=== PATIENT | female | born 1990 | race Caucasian/White ===

== ENCOUNTER 2016-10-14 20:28 | Emergency (ER) | payer OTHER ==
--- NOTE | ~2016-10-14 | CT4 ---
[facility] A Service of [facility] RADIOLOGY TEXT RESULTS PATIENT: NAJMA FINNEY LOCATION: SED : [birth year] UNIT #: [id number] AGE: [address]: MO MILAN SEX: F ORDER DR: [id number] [place] [id number] E MR#: [id number] Acc #: [id number] NAME: NAJMA FINNEY : 1990 SEX: F STUDY DATE/TIME: 10/14/2016 21:43 UNIT: SED ROOM: STUDY DESCRIPTION: CT Abd and Pelv Wo Cont Attending Physician: Mo Milan Ordering Physician: Physician Non-Staff Primary Care Physician: [facility] MEDICAL IMAGING REPORT This report is preliminary unless electronic signature is present. EXAM CT abdomen and pelvis without contrast INDICATION Nausea, vomiting and diarrhea for the past [address] of the abdomen and pelvis. This CT exam was performed with one or more of the following radiation dose reduction techniques: automatic exposure control, adjustment of mA and/or kV according to patient size, and iterative reconstruction. COMPARISON 05/17/2016 FINDINGS ABDOMEN WITHOUT CONTRAST: Included lung bases are clear. Liver measures 18.0 cm. Diffuse hepatic steatosis. Left kidney unremarkable. There is no right kidney. Adrenal glands, pancreas, gallbladder have an unremarkable unenhanced appearance. Bowel loops are nondilated. Appendix is normal. PELVIS WITHOUT CONTRAST: No pelvic mass or fluid. No aggressive appearing bone lesion. IMPRESSION 1. No acute findings. 2. Hepatic steatosis. 3. Either congenital absence or surgical absence of the right kidney. Left kidney unremarkable. [facility] A Service of [facility] RADIOLOGY TEXT RESULTS PATIENT: NAJMA FINNEY LOCATION: SED : [birth year] UNIT #: [id number] AGE: [address]: MO MILAN SEX: F ORDER DR: Dictated by... Kam Norman M.D. THIS IS AN ELECTRONICALLY VERIFIED REPORT Kam Norman M.D. at 10/15/2016 9:54 PM [place] TD: 10/15/2016 08:08 JOB #: [id number] MEDICAL IMAGING REPORT Page 1 of 1
[~2016-10-14 20:28] MED LIST: BACTRIM DS TABL1 TA1 PO; BUSPAR30 MG PO; EFFEXOR-XR150 MG PO; INDERAL20 MG; KLONOPIN0.5 M3; LITHIUM CARBON300 M1; LITHIUM CARBON300 M1 PO; LOESTRIN1 TA1 PO; LORTAB 5/500 TA1 TA1 PO; MINIPRESS; MINIPRESS PO; NEURONTIN800 MG; PAXIL30 MG PO; PAXIL40 MG PO; PHENERGAN PO; PHENERGAN25 MG PO; PROMETHAZINE D118 ML PO; PROMETHAZINE W118 M1 PO; PROPRANOLOL HCL10 MG PO; SEROQUEL XR200 MG PO; TEGRETOL XR PO; THORAZINE100 MG DOB; VICODIN 5/1 TAB 5/50 PO; VISTARIL50 MG PO; WELLBUTRIN XL150 M2; ZITHROMAX PO; ZOFRAN ODT4 MG PO; ZOLOFT PO
[2016-10-14] MEDS ORDERED: NO MEDICATIONS (20:37)
[2016-10-14 21:00] LABS: URINE SOURCE CLEAN CATCH
[2016-10-14 21:03] LABS: URINE APPEARANCE HAZY; URINE BLOOD 2+ (NEG); URINE COLOR YELLOW; URINE GLUCOSE NEG (NORM); URINE KETONE TRACE (NEG); URINE LEUKOCYTE ESTERASE NEG (NEG); URINE NITRATE NEG (NEG); URINE PH 5.5 (5-8); URINE PROTEIN TRACE (NEG); URINE SPECIFIC GRAVITY 1.025 (1.003-1.035)
[2016-10-14 21:05] LABS: BASOPHIL# 0.1 X10e3 (0-0.3); EOSINOPHIL# 0.1 X10e3 (0-0.7); EOSINOPHIL% 0.6 % (0.0-7.0); HEMATOCRIT 46.2 % (35.0-45.0); HEMOGLOBIN 15.3 gm/dL (12.0-16.0); LYMPHOCYTE% 25.5 % (17.0-45.0); MEAN CELL VOLUME 96.5 FL (83-96); MEAN CORPUSCULAR HEMOGLOBIN 31.9 PG (28-34); MEAN CORPUSCULAR HGB CONC 33.1 g/dL (30-36); MEAN PLATELET VOLUME 8.7 FL (6.5-11.5); MONOCYTE# 0.8 X10e3 (0-1.0); MONOCYTE% 6.6 % (3.0-12.0); NEUTROPHIL# 7.8 X10e3 (1.5-7.1); NEUTROPHIL% 66.3 % (40-75); PLATELET COUNT 393 X10e3 (140-420); RED BLOOD COUNT 4.79 X10e (3.90-5.30); RED CELL DISTRIBUTION WIDTH 14.3 % (11.0-15.5); WHITE BLOOD COUNT 11.8 X10e3 (4.0-10.5)
[2016-10-14 21:10] LABS: MICRO INDICATED? YES; URINE BILIRUBIN NEG (NEG)
[2016-10-14 21:10] LABS: DIFF IND NO
[2016-10-14 21:11] LABS: CULTURE INDICATED? NO; URINE BACTERIA NEG (NEG); URINE MUCUS PRESENT; URINE SQUAMOUS EPITHELIAL CELL OCCAS /[HPF]; URINE WBC 0-2 /[HPF] (0-5)
[2016-10-14 21:19] LABS: ALBUMIN SERUM 5.1 g/dL (3.5-5.0); BILIRUBIN, DIRECT 0.1 mg/dL (0.0-0.2); BILIRUBIN,INDIRECT 0.5 mg/dL (0.0-0.9); BILIRUBIN,TOTAL 0.6 mg/dL (0.2-2.0); CALCIUM SERUM 9.8 mg/dL (8.4-10.2); CREATININE SERUM 0.8 mg/dL (0.6-1.4); GLOM FILT RATE Estimated 100.4 mL/min (>60); POTASSIUM 3.7 mmol/L (3.5-5.1); PROTEIN TOTAL SERUM 8.3 g/dL (6.0-8.3)
== END 2016-10-14 23:05 | disposition home or self-care (01) ==
LOC: SED 20:28
PROVIDERS: Physician Assistant
DX: R10.9 Unspecified abdominal pain (principal); R11.2 Nausea with vomiting, unspecified; K21.9 Gastro-esophageal reflux disease without esophagitis; F31.9 Bipolar disorder, unspecified; F17.210 Nicotine dependence, cigarettes, uncomplicated
CPT/HCPCS: 36415; 74176; 80048; 80076; 81003; 83690; 84703; 85025; 96360; 96372; 99284; J2405; J2550

== ENCOUNTER 2016-12-17 07:02 | Inpatient (IN) | payer OTHER ==
[~2016-12-17] VITALS: Ht 157.5 cm; Wt 63.0 kg
--- NOTE | ~2016-12-17 | PN ---
Unit #: [id number] #: [id number] Patient: NAJMA TONEY [id number] [facility] [address] [place] [address] [id number] MR#: [id number] NAME: NAJMA TONEY ROOM: P256 Age: 26 Sex: F Admission Date: 12/18/2016 : 1990 Attending Physician: William Flannery M.D. Admitting Physician: William Flannery M.D. Primary Care Physician: [facility] TATO PROGRESS NOTES DATE December 22, 2016 DISCUSSION Ms. Toney is a 26-year-old white female, who was seen today and chart was reviewed and the case was discussed with the staff. The patient has been doing fairly well with no agitation or irritability, and has been rather calm as compared to yesterday and has been taking the medications and tolerating them fairly well with no reported side effects. MENTAL STATUS EXAMINATION Young white female, who was casually dressed with fair personal hygiene and appears to be in no acute distress or discomfort. She was awake and alert on interaction with intact orientation. Her mood was anxious and depressed with a congruent affect. The patient denies any suicidal or homicidal ideations. Her insight and judgment remain slightly impaired. TREATMENT PLAN 1. We will continue her on her current medications and treatment protocol, and will monitor her response to the medications, and make further adjustments as needed. 2. We will continue to followup. Dictated by... Sam Ellis/peyton TD: 12/24/2016 04:56 JOB #: [id number] Unit #: [id number] #: [id number] Patient: NAJMA TONEY PROGRESS NOTES Page 1 of 1 X William Flannery MD X PROGRESS NOTE
--- NOTE | ~2016-12-17 | PN ---
Unit #: [id number] #: [id number] Patient: NAJMA TONEY [id number] [facility] [address] [place] [address] [id number] MR#: [id number] NAME: NAJMA TONEY ROOM: P256 Age: 26 Sex: F Admission Date: 12/18/2016 : 1990 Attending Physician: William Flannery M.D. Admitting Physician: William Flannery M.D. Primary Care Physician: [facility] TATO PROGRESS NOTES DATE 12/21/2016 DISCUSSION Ms. Toney is a 26-year-old white female who was seen today and chart was reviewed and case was discussed with the staff. She has been anxious, withdrawn and rather seclusive to herself and has been showing some increasing agitation, aggression and has been yelling, screaming, cursing and causing a lot of disturbance on the unit refusing to take responsibility for her mood, her actions and her behavior. MENTAL STATUS EXAMINATION Young white female who was casually dressed with fair personal hygiene, appears to be in no acute distress or discomfort. She was awake and alert with intact orientation. Her mood was anxious with congruent affect. She denies any suicidal or homicidal ideations. Her insight and judgement remains slightly impaired. TREATMENT PLAN 1. We will continue her on her current medications and treatment protocol. We will monitor her response to the medication. We will make further adjustments as needed. 2. We will continue to follow up. Dictated by... Sam Ellis/angélica TD: 12/23/2016 03:51 JOB #: [id number] Unit #: [id number] #: [id number] Patient: NAJMA TONEY PROGRESS NOTES Page 1 of 1 X iWlliam Flannery MD PROGRESS NOTE
--- NOTE | ~2016-12-17 | PA ---
Unit #: [id number] #: [id number] Patient: NAJMA FINNEY [id number] [facility] [address] [place] [address] [id number] MR#: [id number] NAME: NAJMA FINNEY ROOM: P265 Age: 26 Sex: F Admission Date: 12/18/2016 : 1990 Date of Assessment: 12/19/2016 Attending Physician: William Flannery M.D. Admitting Physician: William Flannery M.D. Primary Care Physician: [facility] PSYCHIATRIC ASSESSMENT DATE OF SERVICE 12/19/2016. IDENTIFYING DATA Ms. Finney is a 26-year-old single white female, who is a resident of [place], [place] and was self referred to the hospital on a voluntary basis and was referred to us from the intensive outpatient treatment program. CHIEF COMPLAINT "I just feel hopeless." HISTORY OF PRESENT ILLNESS Ms. Finney is a 26-year-old white female with history of mood disorder, who reports that she just came from her therapist office and they referred her to come here, "I do not know, I just feel hopeless and went to counseling today thinking I would have a little hopes to get to tomorrow and get to outpatient and I have been to outpatient and inpatient and it never helps well, I do not know what is different from last one, I feel like I was going to kill myself, I mean, overdose, hanging, shooting myself, getting hit by a train, car wreck. I have been suicidal since I was child and I have been able to manage up until the last 10 years and I do not like communicating because you get dehumanized and treated like an animal and the therapist who referred here, states that the patient has been working with them for many years and this is where she has been seen and she has been re-concerned and therapist was concerned about the patient's safety and the patient reports that she overdosed on Klonopin at [facility] on Friday and reports the patient called and found out admission was busy and left and has been noncompliant with medications. She has been feeling hopeless and has not been eating and staying in her room and has stopped watching TV. The therapist believes this is the closest that the patient has been suicide and she was seemed to be significant threat to herself and as such, recommendation for inpatient level of care for safety and stabilization was made and she was stepped up to the inpatient unit. SUBSTANCE ABUSE HISTORY The patient reports extensive history of substance abuse and dependence including alcohol, cannabis, cocaine, opioids, amphetamines, and benzodiazepines, and reports that more recently, she has been using marijuana on daily basis, but has not used any drugs in the last few months to years. Unit #: [id number] #: [id number] Patient: NAJMA FINNEY PAST PSYCHIATRIC HISTORY The patient has a history of multiple inpatient psychiatric hospitalizations at [facility] and currently has been seeing Dr. Plaza for medication management on an outpatient basis and review of the medical records indicate that she has been diagnosed and treated for bipolar disorder and is on Depakote and Klonopin. PAST MEDICAL HISTORY No acute or chronic medical illnesses. PERSONAL AND SOCIAL HISTORY A 26-year-old white female, who reports that she is single, unemployed, and lives at home with her mother and has fairly decent social support system. MENTAL STATUS EXAMINATION Young white female, who was casually dressed with fair personal hygiene, appears to be in no acute distress or discomfort. She was awake and alert on interaction with intact orientation to time, place, and person. Her mood was anxious and depressed with a congruent affect. Her speech was slow and restricted in content. She reports having suicidal ideations, but denies any homicidal ideations, and also denies any auditory or visual hallucinations. Her insight and judgment remain significantly impaired. DIAGNOSTIC IMPRESSION Psychiatric: Bipolar disorder, most recent episode depressed, recurrent, moderate, without psychotic features. Medical: None. Stressors: Moderate psychosocial stressors. TREATMENT PLAN 1. The patient has presented with history of mood disorder and has been decompensating and will need inpatient hospitalization for safety and stabilization. We will start her back on her home medications. We will adjust the medications and monitor response. 2. Supportive therapy was provided to the patient. 3. Safe, structured, and nourishing environment will be provided. ESTIMATED LENGTH OF STAY 5 to 7 days. ABILITY TO HELP SELF Limited. WILLINGNESS TO HELP SELF The patient appears to be willing to help self. STRENGTHS 1. Communicative. 2. Cooperative. PROBLEMS 1. Chronic dysphoric symptoms. 2. Poor social support system. DISCHARGE CRITERIA This will be contingent upon the patient's ability to show resolution of her depression and anxiety and her ability to stay safe to herself, Unit #: [id number] #: [id number] Patient: NAJMA FINNEY particularly after discharge from the hospital. Dictated by... Sam Ellis/sandra TD: 12/19/2016 07:27 JOB #: [id number] PSYCHIATRIC ASSESSMENT Page 1 of 1 X William Flannery MD X PSYCHIATRIC ASSESSMENT
--- NOTE | ~2016-12-17 | A ---
[facility] Nutrition Therapy DATE: 12/20/16 Patient: NAJMA SHARMIN Physician: VIKTOR Address: [address] [place] [address] Room/Bed: [address], Zip: [place] [address] Admit Date: 12/18/16 Date of : [birth year] Height: 5 2 Weight: [id number] NUTRITIONAL ASSESSMENT: REASON: DIFFICULTIES CHEWING/SWALLOWING PATIENT ADMITTED FOR DEPRESSION, SI, AND SELF-HARM PMH: GERD, CONGENITAL SINGLE KIDNEY Anthropometrics: HT: 62", WT: 139#, BMI: 25.4 Labs: 12/19/16- ALL NUTRITIONAL LABS WNL Meds: ABILIFY, AMOXICILLIN, KLONOPIN Assessment: PATIENT IS A 26 Y/O FEMALE AMDITTED FOR DEPRESSION, SI, AND SELF-HARM. PATIENT IS CURRENTLY UNEMPLOYED, ON DISABILITY, LIVES WITH HER MOTHER, SMOKES 2 PPD, HAS DAILY MARIJUANA USE, AND HAS A HX OF ETOH, COCAINE, OPIATES, METH, AND XANAX ABUSE. IT IS NOTED THAT PATIENT HAS A HX OF MULTIPLE INPATIENT PSYCH HOSPITALIZATIONS AND SHE HAS BEEN NON-COMPLIANT WITH FILOMENA MEDICATIONS PRIOR TO ADMIT. PER NEEDS ASSESSMENT PATIENT STATED A POOR APPETITE WITH A 21# WEIGHT LOSS X 1 MONTH. WEIGHT HX PER MEDITECH SHOWS A 9# WEIGHT GAIN OVER THE LAST 3 MONTHS. NURSING REPORTS GOOD PO INTAKES. PATIENT HAS SCRATCHES ON BOTH ARMS D/T SELF-HARM WITH NO FURTHER SKIN BREAKDOWN OR GI ISSUES NOTED ATT. NURSING REPORTS PATIENT HAS BEEN IRRITABLE, ANGRY, AND THREATENING SINCE ADMIT, AND THAT PATIENT HAS TOOTH AND MOUTH PAIN. PATIENT IS ON A REGULAR DIET AND CURRENTLY RECEIVES FINGER FOODS A BEHAVIOR PRECAUTION. THERE ARE NO C/O CHEWING OR SWALLOWING DIFFICULTIES NOTED ATT. Dx: NO NUTRITION DX Intervention: REGULAR DIET, FINGER FOODS NEEDED, MEDS PER MD, PSYCH Monitoring, Evaluation and Goals: 1. ADEQUATE PO INTAKES >50% OF MEALS 2. PREVENT, CORRECT MICRO/MACRO NUTRIENT DEFICIENCIES MONITOR: WEIGHTS, LABS, PO/FLUID INTAKES Recommendations: 1. CONTINUE REGULAR DIET TOLERTED AND SEND FINGER FOODS NEEDED. 2. ENCOURAGE ADEQUATE PO AND FLUID ITNAKES 3. IF PATIENT HAS C/O CHEWING OR SWALLOWING DIFFICULTIES PLEASE CONSULT PETROGRAPHER FOR FURTHER EVALUATION [facility] Nutrition Therapy DATE: 12/20/16 Patient: NAJMA FINNEY Physician: VIKTOR Address: [address] [place] [address] Room/Bed: [address], Zip: [place] [address] Admit Date: 12/18/16 Date of : [birth year] Height: 5 2 Weight: [phone] TO F/U PER PROTOCOL AND PRN R/T PATIENT NOT AT NUTRITIONAL RISK Respectfully, LUCAS SANTIAGO, RD, LD [facility] Nutrition[facility] cc: client file
--- NOTE | ~2016-12-17 | DS ---
Unit #: [id number] #: [id number] Patient: NAJMA FINNEY [id number] [facility] [address] [place] [address] [id number] MR#: [id number] NAME: NAJMA FINNEY ROOM: [facility] Age: 26 Sex: F Admission Date: 12/18/2016 : 1990 Discharge Date: 12/23/2016 Attending Physician: William Flannery M.D. Primary Care Physician: [facility] DISCHARGE SUMMARY REASON FOR ADMISSION Suicidal ideation. DIAGNOSTIC STUDIES LABORATORY RESULTS: Unremarkable except urine drug screen positive for benzodiazepine and marijuana. HOSPITAL COURSE The patient was admitted to the inpatient unit on 12/18/2016 and discharged on 12/23/2016. The patient was treated on the inpatient unit with group therapy, medication management, psychotherapy, and structured milieu. The patient was responsive to treatment. Subsequently, the patient was discharged with a plan to follow up in outpatient program. DISCHARGE MEDICATION Abilify 10 mg b.i.d. for mood stabilization. DISCHARGE DIAGNOSES Psychiatric: Bipolar mood disorder, recurrent, severe, depressed, F31.9; cannabis abuse, moderate, F12.20; and sedative hypnotic use disorder, severe, F13.20. Secondary diagnosis: Deferred. Medical diagnosis: None. Stressors: Psychosocial stressors. DISCHARGE INSTRUCTIONS The patient to follow up in outpatient clinic as per social sciences department chair. CONDITION ON DISCHARGE The patient was pleasant and cooperative. Denied any psychotic symptoms or any suicidal ideation. PROGNOSIS Guarded. DIET AND ACTIVITY As tolerated. Dictated by... Unit #: [id number] #: [id number] Patient: NAJMA FINNEY Sam Galvan/sandra TD: 12/25/2016 15:53 JOB #: [id number] DISCHARGE SUMMARY Page 1 of 1 X Mario George MD X DISCHARGE SUMMARY
--- NOTE | ~2016-12-17 | HP ---
Unit #: [id number] #: [id number] Patient: NAJMA FINNEY [id number] [facility] [address] [place] [address] [id number] I MR#: [id number] NAME: NAJMA FINNEY ROOM: P265 Age: 26 Sex: F Admission Date: 12/18/2016 : 1990 Attending Physician: William Flannery M.D. Admitting Physician: William Flannery M.D. Primary Care Physician: [facility] HISTORY AND PHYSICAL HISTORY OF PRESENT ILLNESS Najma is a 26-year-old admitted to [address] [place] [address] with depression and self-harming behavior. She has had other admissions to this facility for the same. PAST MEDICAL HISTORY 1. History of self-harming. She has new areas along both of her arms. 2. Congenital single kidney. 3. GERD. 4. Obesity. PAST SURGICAL HISTORY Pelvic surgery as a child. ALLERGIES No known drug allergies. SOCIAL HISTORY Smokes 1 pack per day. Denies alcohol. Admits to using marijuana and has a history of illicit substance abuse. FAMILY HISTORY Medically noncontributory. REVIEW OF SYSTEMS CONSTITUTIONAL: No fever or chills. HEENT: Denies any sore throat, ear pain or runny nose. CARDIOVASCULAR: Denies chest pain, irregular heart rhythm or palpitations. CHEST: Denies shortness of breath or cough. No hemoptysis. GASTROINTESTINAL: Denies nausea, vomiting, diarrhea or chronic constipation. ENDOCRINE: Denies history of increased thirst or urination. No recent significant weight loss or gain. GENITOURINARY: Denies dysuria, frequency, or hematuria. SKIN: Denies any rashes. HEMATOLOGIC: Denies history of increased bleeding or bruising. MUSCULOSKELETAL: Denies any hot, swollen joints. No generalized muscle pain. NEUROLOGIC: Denies problems with vision or speech. No frequent, severe headaches. No numbness, tingling or weakness in any extremities. Denies loss of bladder or bowel control. CURRENT MEDICATIONS Unit #: [id number] #: [id number] Patient: NAJMA FINNEY 1. Abilify 5 mg q.h.s. 2. Triple antibiotic ointment topically t.i.d. 3. Minipress 2 mg b.i.d. 4. Amoxicillin 500 mg q.i.d. 5. Milk of Magnesia p.r.n. 6. Maalox p.r.n. 7. Tylenol p.r.n. 8. Lamictal 25 mg b.i.d. 9. Depakote 500 mg b.i.d. 10. Klonopin 1 mg t.i.d. 11. Nicotine patch 21 mg daily PHYSICAL EXAMINATION GENERAL: Alert, obese, in no apparent distress. VITAL SIGNS: Blood pressure 100/70, heart rate 80, respirations 16, temperature 98.6. WEIGHT: 139. HEIGHT: 5 feet 2 inches. SKIN: Warm and dry without rash. She has multiple long scratched areas on bilateral arms. There is no increased redness, swelling, heat or pus noted. HEENT: Normocephalic. TMs not viewed. Oral and nasal passages clear. Conjunctivae clear. PERRLA. EOMs intact. NECK: Supple without lymphadenopathy or thyromegaly. HEART: Regular rate and rhythm without murmur. LUNGS: Clear. ABDOMEN: Soft, nontender. : Not done. EXTREMITIES: No evidence of cyanosis, clubbing or edema. Moves all without focal deficit. NEUROLOGICAL: Grossly within normal limits. Cranial Nerves: II: Visual dodd are intact. III, IV AND : Extraocular movements are intact. Pupils are equal, round and reactive to light. V: Facial sensation is grossly normal. VII: Facial movements and expression are normal. VIII: Auditory acuity grossly intact. IX, X: Uvula is midline. Phonation is normal. XI: Patient shrugs shoulders and turns head normally. XII: Tongue protrudes in the midline. Sensory and Motor Function: Sensory and motor sensation is grossly normal. Motor: moves all extremities well. Coordination: Gait is normal. Deep Tendon Reflexes: Intact. IMPRESSION Psychiatric admission. RECOMMENDATIONS PSYCHIATRIC: Per psychiatrist. MEDICAL: See no contraindication to participate in facility's activities. MEDICAL PROGNOSIS Good. MEDICAL CONDITION Stable. Dictated by... Unit #: [id number] #: [id number] Patient: NAJMA FINNEYnifer Jose Raul RubyAEma-Rand. for Sam Sanchez/james TD: 12/19/2016 18:02 JOB #: [id number] HISTORY AND PHYSICAL Page 1 of 1 X Kate Mckinley HISTORY AND PHYSICAL
--- NOTE | ~2016-12-17 | PN ---
Unit #: [id number] #: [id number] Patient: NAJMA TONEY [id number] [facility] [address] [place] [address] [id number] MR#: [id number] NAME: NAJMA TONEY ROOM: [facility] Age: 26 Sex: F Admission Date: 12/18/2016 : 1990 Attending Physician: William Flannery M.D. Admitting Physician: William Flannery M.D. Primary Care Physician: [facility] TATO PROGRESS NOTES DATE OF SERVICE 12/20/2016 DISCUSSION Mr. Toney is a 26-year-old white female who was seen today. Chart was reviewed and case was discussed with the staff. She has been agitated, irritable, angry, and had a rough day yesterday with episodes of verbal and physical outbursts and aggression and self-harming behavior, and threatening staff and other peers, needing p.r.n. medications, and continues to show very negative attitude and behavior. As such we will adjust her medications and monitor response. Dictated by... Sam Ellis/lyle TD: 12/20/2016 10:42 JOB #: [id number] TATO PROGRESS NOTES Page 1 of 1 X William Flannery MD PROGRESS NOTE
[~2016-12-17 07:02] MED LIST changes: +NO MEDICATIONS
[2016-12-19 09:41] LABS: URINE APPEARANCE CLEAR; URINE BILIRUBIN NEG (NEG); URINE BLOOD NEG (NEG); URINE COLOR YELLOW; URINE GLUCOSE NORM (NORM); URINE KETONE NEG (NEG); URINE LEUKOCYTE ESTERASE NEG (NEG); URINE NITRATE NEG (NEG); URINE PROTEIN NEG (NEG); URINE UROBILINOGEN NORM (NORM)
[2016-12-19 09:48] LABS: BASOPHIL# 0.1 X10e3 (0-0.3); BASOPHIL% 0.9 % (0-2.5); EOSINOPHIL# 0.2 X10e3 (0-0.7); EOSINOPHIL% 1.8 % (0.0-7.0); HEMATOCRIT 40.6 % (35.0-45.0); HEMOGLOBIN 13.4 gm/dL (12.0-16.0); LYMPHOCYTE# 3.3 X10e3 (1.0-3.5); LYMPHOCYTE% 29.1 % (17.0-45.0); MEAN CELL VOLUME 93.9 FL (83-96); MEAN CORPUSCULAR HEMOGLOBIN 30.9 PG (28-34); MEAN CORPUSCULAR HGB CONC 32.9 g/dL (30-36); MEAN PLATELET VOLUME 8.7 FL (6.5-11.5); MONOCYTE# 0.9 X10e3 (0-1.0); MONOCYTE% 7.7 % (3.0-12.0); NEUTROPHIL# 6.8 X10e3 (1.5-7.1); NEUTROPHIL% 60.5 % (40-75); PLATELET COUNT 308 X10e3 (140-420); RED BLOOD COUNT 4.33 X10e (3.90-5.30); RED CELL DISTRIBUTION WIDTH 14.8 % (11.0-15.5); WHITE BLOOD COUNT 11.2 X10e3 (4.0-10.5)
[2016-12-19 09:51] LABS: DIFF IND NO
[2016-12-19 09:59] LABS: BILIRUBIN,TOTAL 0.7 mg/dL (0.2-2.0); BUN/CREATININE RATIO 12.85; CALCIUM SERUM 9.1 mg/dL (8.4-10.2); CREATININE SERUM 0.7 mg/dL (0.6-1.4); GLOM FILT RATE Estimated 117.9 mL/min (>60); POTASSIUM 4.1 mmol/L (3.5-5.1); PROTEIN TOTAL SERUM 6.5 g/dL (6.0-8.3)
[2016-12-19 10:04] LABS: AMPHETAMINE NEG (NEG); BARBITURATES NEG (NEG); BENZODIAZEPINES POS (NEG); COCAINE NEG (NEG); MARIJUANA POS (NEG); OPIATES NEG (NEG); TRICYCLIC ANTIDEPRESSANTS NEG (NEG); U METHADONE NEG (NEG)
== END 2016-12-23 11:00 | disposition home or self-care (01) | DRG 885 ==
LOC: P2L 12-18 19:52
PROVIDERS: Psychiatry & Neurology Psychiatry
DX: F31.32 Bipolar disorder, current episode depressed, moderate (principal); R45.851 Suicidal ideations; Z91.5 Personal history of self-harm; K21.9 Gastro-esophageal reflux disease without esophagitis; F17.200 Nicotine dependence, unspecified, uncomplicated
CPT/HCPCS: 80053; 80164; 80307; 81003; 82140; 84703; 85025